=== PATIENT | male | born 1975 | race Caucasian/White ===

== ENCOUNTER 2023-12-11 07:49 | Day surgery (SDC) | payer OTHER ==
[~2023-12-11] VITALS: Ht 172.7 cm; Wt 72.3 kg
[~2023-12-11 07:49] MED LIST: SODIUM CHLORIDE 0.9% 1,000 ML ONE
[2023-12-11] MEDS: SODIUM CHLORIDE 0.9% 1,000 ML IV ONE (08:28)
[2023-12-11] MEDS ORDERED: DiphenhydrAMINE HCL 50 MG/ML VIAL ONE (10:08)
[2023-12-11] MEDS ORDERED: FentaNYL CITRATE PF 100 MCG/2 ML VIAL ONE (10:08)
[2023-12-11] MEDS ORDERED: MIDAZOLAM HCL 5 MG/ML VIAL ONE (10:08)
[2023-12-11] MEDS: FentaNYL CITRATE PF 100 MCG/2 ML VIAL IVP ONE ×2 (10:46→10:48)
[2023-12-11] MEDS: MIDAZOLAM HCL 5 MG/ML VIAL IVP ONE ×2 (10:46→10:48)
== END 2023-12-11 13:10 | disposition home or self-care (01) ==
LOC: SURGERY 07:49
PROVIDERS: ATTEND Internal Medicine
DX: D50.9 Iron deficiency anemia, unspecified (principal); K31.7 Polyp of stomach and duodenum; I11.0 Hypertensive heart disease with heart failure; I50.9 Heart failure, unspecified; E78.00 Pure hypercholesterolemia, unspecified; F25.0 Schizoaffective disorder, bipolar type; Z79.2 Long term (current) use of antibiotics; Z79.899 Other long term (current) drug therapy; Z98.890 Other specified postprocedural states; Z88.8 Allergy status to other drugs, medicaments and biological substances
CPT/HCPCS: 43251; 88305; 99153; 99152; J3010; J2250; J7030; J1200